=== PATIENT | male | born 1955 | race Caucasian/White ===

== ENCOUNTER → 2021-11-27 | Outpatient (CLI) | payer MEDICARE, MEDICAID ==
[~2021-11-27] MED LIST: ASPIRIN ADULT L81 M2 PO; CARVEDILOL25 MG PO; CLOPIDOGREL75 MG PO; DULOXETINE HCL30 MG PO; HYDRALAZINE HYD50 MG PO; ISOTON GEN100 MG/50 IV; Imdur SA60 MG PO; LEVOFLOXACIN500 MG PO; NIFEDIPINE ER30 M1 PO; PANTOPRAZOLE SO40 MG PO; REQUIP2 MG PO; SEVELAMER HCL800 MG PO; Synthroid,Levo25 MCG PO; TRAMADOL HCL50 MG PO
== END | disposition home or self-care (01) ==
LOC: US 16:24
PROVIDERS: ATTEND Podiatrist Foot & Ankle Surgery
DX: R59.0 Localized enlarged lymph nodes (principal); R60.0 Localized edema

== ENCOUNTER → 2022-02-07 | Outpatient (CLI) | payer MEDICARE, MEDICAID ==
[~2022-02-07] MED LIST changes: +CRUTCHES DEVI; +NOVOLOG MI100 UNIT/1 SC; +NOVOLOG MI100 UNIT/1 SQ; +ULTRAM50 MG PO; +VIBRAMYCIN100 MG PO; +WHEELCHAIR DEVI
== END | disposition home or self-care (01) ==
LOC: RAD 13:54
PROVIDERS: ATTEND Nurse Practitioner Family
DX: Z01.810 Encounter for preprocedural cardiovascular examination (principal); I11.9 Hypertensive heart disease without heart failure